=== PATIENT | male | born 1940 | race Caucasian/White ===

== ENCOUNTER → 2017-10-28 | Outpatient (CLI) | payer MEDICARE ==
[~2017-10-28] MED LIST: CALC1TAB87 PO; CO Q100C9 PO; ECASA81 PO; FOLI800T PO; LACTCAP8 PO; OMEGCAP PO; VITA2000 PO; VITA500T83 PO
[2017-10-28 08:26] LABS: PROTHROMBIN TIME - PATIENT 10.6 SEC (9.8-11.6)
--- NOTE | 2017-10-28 16:18 | EKG ---
Date Performed: 10/28/2017 Time Performed: 08:06:12 PTAGE: 77 years EKG: Sinus rhythm RIGHT BUNDLE BRANCH BLOCK ABNORMAL ECG NO PREVIOUS TRACING DOCTOR: Iftikhar Mercado Interpretating Date/Time 10/28/2017 16:17:10
== END ==
LOC: CPRE 07:47
PROVIDERS: ATTEND Orthopaedic Surgery
DX: Z01.810 Encounter for preprocedural cardiovascular examination (principal); Z01.812 Encounter for preprocedural laboratory examination; Z01.818 Encounter for other preprocedural examination; M17.11 Unilateral primary osteoarthritis, right knee; M79.609 Pain in unspecified limb; E11.9 Type 2 diabetes mellitus without complications; R94.31 Abnormal electrocardiogram [ECG] [EKG]
CPT/HCPCS: 36415; 85610; 85730; 93005

== ENCOUNTER → 2017-11-04 | Outpatient (CLI) | payer MEDICARE ==
[~2017-11-04] MED LIST changes: +SIMV20TA PO
[2017-11-04 10:54] LABS: BILIRUBIN, URINE NEG (NEG); BLOOD, URINE NEG (NEG); GLUCOSE,URINE NEG (NEG); KETONE, URINE NEG (NEG); MUCUS URINE FEW /lpf (OCC); NITRITE,URINE NEG (NEG); SQUAMOUS EPITHELIAL CELL URINE <1 /hpf (0-5); URINE COLOR YELLOW (YELLW/STRAW); URINE LEUKOCYTE ESTERASE NEG (NEG)
== END ==
LOC: CPRE 09:45
PROVIDERS: ATTEND Orthopaedic Surgery
DX: Z01.812 Encounter for preprocedural laboratory examination (principal); E11.9 Type 2 diabetes mellitus without complications; M17.11 Unilateral primary osteoarthritis, right knee; M79.609 Pain in unspecified limb
CPT/HCPCS: 81001

== ENCOUNTER 2017-11-07 07:00 | Inpatient (IN) | payer MEDICARE ==
[~2017-11-07] VITALS: Ht 180.3 cm; Wt 113.2 kg
[~2017-11-07 07:00] MED LIST changes: -SIMV20TA PO
[2017-11-08] MEDS ORDERED: FAT EMULSION 20% INJ 0 ML ONE (05:38)
[2017-11-08] MEDS ORDERED: METOPROLOL TARTRATE 25 MG TAB PO PRN (05:45)
[2017-11-08] MEDS ORDERED: SODIUM CHLORID 0.9% 500 ML IV PRN (05:45)
[2017-11-08] MEDS ORDERED: POVIDONE IODINE 5% (ANTISEPSIS KIT) 4 APPLICATIONS EACH NARE PRN (05:45)
[2017-11-08] MEDS ORDERED: LACTATED RINGER'S 1000 ML IV PRN (05:45)
[2017-11-08] MEDS ORDERED: ceFAZolin 2 GM PREMIX 50 ML IV SCH (05:45)
[2017-11-08] MEDS ORDERED: CHLORHEXIDINE GLUCONATE 2 % 1 PACK (2 CLOTHS) TOPICAL PRN (05:45)
[2017-11-08] MEDS ORDERED: CHLORHEXIDINE GLUCONATE 4% SOLN 120 ML BTL TOPICAL SCH (05:45)
[2017-11-08] MEDS ORDERED: SIMV20TA PO (05:50)
[2017-11-08] MEDS ORDERED: GENTAMICIN SULFATE 80 MG/2 ML VIAL ONE (06:04)
[2017-11-08 06:14] VITALS: PULSE 82
[2017-11-08] MEDS ORDERED: BUPIVACAINE HCL PF 0.5% 30 ML VIAL ONE (06:17)
[2017-11-08] MEDS ORDERED: ACETAMINOPHEN 1000 MG/100 ML 100 ML IV ONE (06:39)
[2017-11-08] MEDS ORDERED: BUPIVACAINE PF 0.75% DEX-WATER INJ 2 ML AMP ONE (06:39)
[2017-11-08] MEDS ORDERED: TRANEXAMIC ACID INJ 1,100 MG in SODIUM CHLORIDE 0.9% INJ 100 ML IV SCH (07:00)
[2017-11-08] MEDS ORDERED: EXPAREL PERI-ARTICULAR INJECTION (TOTAL VOL. 100 ML) P-ARTICULR SCH ×2 (07:00)
[2017-11-08] MEDS ORDERED: PROPOFOL 200 MG/20 ML AMP ONE (07:18)
--- NOTE | 2017-11-08 09:20 | PD.OP ---
Operative Report Date of Surgery: Nov 08, 2017 Preoperative Diagnosis: (1) Primary osteoarthritis of right knee Postoperative Diagnosis: (1) Primary osteoarthritis of right knee Procedure: Right total knee arthroplasty using Palmer Triathlon prosthesis (uncemented) Anesthesia: Spinal with supplemental adductor canal block regional and local with Exparel Surgeon: Kelvin Palma MD Air Brakes Inspector(s): EAN Pierce Operation and Findings: Indications and Findings: This 77-year-old man has had 10-15 year history of right knee pain progressively worsening to the point that he now has an ambulation tolerance of 100 yards. He has difficulty with activities of daily living including stair climbing and standing from a seated position. He has been treated with analgesics, anti-inflammatory agents, exercises, ambulatory aids with no improvement and continued worsening. Physical findings showed degenerative varum with medial laxity, crepitation on motion, and antalgic gait and an effusion. X-rays show loss of articular cartilage to [id number] in the medial compartment with medial, lateral and patellofemoral osteophytes as well as evidence of chondrocalcinosis. Operative findings: There is severe osteoarthritis in the right knee with loss of articular cartilage to [id number] in the medial, lateral and patellofemoral compartments. There are large osteophytes. There is significant medial eburnation and patellofemoral eburnation. The prosthesis used was a Palmer Triathlon prosthesis. The femur was a size 7, cruciate retaining, uncemented. The tibial baseplate was a size 8 Tritanium with a 9 mm cruciate retaining X3 polyethylene spacer. The patella was a size 38 mm asymmetric Tritanium backed. The patient was brought to the clean-air operating suite. A spinal anesthetic was administered as well as a regional anesthetic by adductor canal block. The position was supine with a small bolster under the hip on the operative side. A pneumatic tourniquet was applied to the upper thigh. The lower extremity was prepped with alcohol, Hibiclens and ChloraPrep and draped in the usual manner with the knee draped free. An appropriate timeout procedure was carried out. An incision was made from about 3 fingerbreadths above the superior medial pole of patella down the tibial tubercle on the medial side. The incision was deepened through the subcutaneous tissue to the retinacular structures which were exposed medially and laterally. A medial retinacular incision was made from the superior middle pole of patella down the tibial tubercle and up into the quadriceps tendon splitting it longitudinally and the medial one third. The patella was reflected. The infrapatellar fat pad was debulked. The anterior cruciate ligament was excised. Medial and lateral meniscectomies were initiated. Fenestrations were made in the distal femur and proximal tibia for intramedullary referencing guides. The distal femoral cutting guide and jig were assembled for a 5, 8 mm cut. When this was fit into position,the cutting block was stabilized with pins. The jig was removed. The distal femoral cut was then completed with the oscillating saw. The sizing guide was positioned in place along Whitesides line and the epicondylar axis and stabilized with pins. The femoral size was determined as noted above. The 4-in-1 cutting block was positioned in place. Anterior and posterior cuts were made followed by posterior and anterior chamfer cuts taking care to prevent injury to ligamentous structures. Osteophytes were trimmed from the distal femur. A bone plug was placed into the fenestration of the distal femur. The proximal tibia was exposed. The medial and lateral meniscectomies were completed. The proximal tibial cutting guide was positioned in place and stabilized with a pin for rotation. The depth of cut was verified with a stylus off the high side. The cutting block was stabilized with pins. The jig was removed. The depth of cut was verified and adjusted appropriately with the use of the spacer block. The proximal tibial cut was made with the oscillating saw taking care to prevent injury to neurovascular and ligamentous structures. Proximal tibial bone was removed. Local anesthetic was administered with Exparel in the posterior capsule. The tibial baseplate trial was positioned in place. After verifying the appropriate size, the base plate trial was positioned in place along with its spacer. The femoral component was impacted into place. The alignment was checked. The tibial baseplate was pinned in place on the tibia. Attention was directed to the patella. The patella drill guide was positioned in place for the appropriate sized patella. Patellar drilling was then carried out. The trial patella was positioned in place. The knee was taken through a range of motion which was easily 0 extension to 140 of flexion. The patella trial was removed. The femoral drill holes were made. The femoral trials were removed. The tibial spacer was removed. A bone plug was placed into the proximal tibia. The tibial punch was impacted through the proximal tibial punch guide. This was all removed followed by placement of the tibial drill guide. The tibial drill holes were made. The guide was removed. The cut ends of bone were cleaned with pulse lavage. The tibial baseplate was impacted into place and seated appropriately. The spacer was inserted. The the femoral component was impacted into place and seated appropriately. The patella component was seated with the patellar vice and tightened appropriately. The knee was taken through a range of motion which was comparable to the previous range of motion with excellent stability in flexion and extension and appropriate patellofemoral tracking. The remainder of the Exparel was injected throughout the knee as a local anesthetic. Drains were brought out the superior lateral aspect of the suprapatellar pouch. Wound closure commenced using 0 Vicryl interrupted [id number] sutures for the capsular and fascial structures, 2-0 Vicryl interrupted simple sutures with buried knots for the subcutaneous tissues and 4-0 Monocryl, continuous subcuticular closure for the skin. The wound was dressed with Dermabond Prineo followed by a dry sterile dressing. Sterile soft roll with a cooling pad and Robinson bandage from the base of the toes to mid thigh were applied. Patient was transferred from the operating room to the recovery room in satisfactory condition having tolerated procedure well. Counts were correct. Specimens: None. Estimated blood loss: 200 mL Diana Palma MD ([facility]) Nov 08, 2017 09:20
--- NOTE | 2017-11-08 09:29 | HHI.FF ---
Face to Face Verification Diagnosis: (1) Status post total right knee replacement Physical Therapy Gait training Knee: Total knee, Protocol: Right, Full weight bearing Right LE Weight Bearing: WB as tolerated Right LE Range of Motion: Active ROM (Active, active assisted, passive range of motion. Range of motion goal is 0 extension to 135 of flexion. Range of motion achieved in the operating room was 0 extension to 140 of flexion.) Nursing Nursing: Dressing changes Dressing Changes: Daily dressing change, Coverderm/Primapore Additional Instructions Do not remove Dermabond Prineo. I have seen patient Yonatan Nielsen Felipa, III on 11/08/17. My clinical findings support the need for the requested home health care services because: Ltd mobility - disease progression Limited ability to care for self High risk of falls I certify that my clinical findings support that this patient is homebound because: Post-op weakness Unsteady gait/balance Unsafe to leave home unassisted Diana Palma MD ([place]) Nov 08, 2017 09:29
[2017-11-08] MEDS ORDERED: MORPHINE SULFATE 4 MG/ML INJ IV PUSH PRN (09:30)
[2017-11-08] MEDS ORDERED: ACETAMINOPHEN/HYDROcodone 325 MG/7.5 MG TAB PO PRN (09:30)
[2017-11-08] MEDS ORDERED: MAGNESIUM HYDROXIDE SUSP 30 ML CUP PO PRN (09:30)
[2017-11-08] MEDS ORDERED: Post-op Orders (for Pharmacy) XX ONE (09:30)
[2017-11-08] MEDS ORDERED: ONDANSETRON HCL 4 MG/2 ML VIAL IVP PRN (09:30)
[2017-11-08] MEDS ORDERED: HYDR-3580 PO (09:32)
[2017-11-08] MEDS ORDERED: ECASA81 PO (09:32)
[2017-11-08] MEDS ORDERED: DO NOT ADM ANY ANTICOAGULANT DRUGS PRN (09:39)
[2017-11-08] MEDS ORDERED: GLYCOPYRROLATE 0.2 MG/ML VIAL ONE (09:56)
[2017-11-08] MEDS ORDERED: *ONDANSETRON 4 MG VIAL PERIprocedural Use ONLY ONE (09:57)
[2017-11-08] MEDS ORDERED: TRANEXAMIC ACID IV SCH ×2 (10:00→10:15)
[2017-11-08] MEDS ORDERED: SODIUM CHLORIDE 0.9% IV SCH ×2 (10:00→10:15)
[2017-11-08] MEDS: LACTATED RINGER'S 1000 ML INJ 1,000 ML IV SCH ×3 (10:07→23:38)
[2017-11-08] MEDS: KETOROLAC TROMETHAMINE 30 MG/ML (IVP) VIAL IVP SCH ×3 (10:20→20:49)
--- NOTE | 2017-11-08 10:39 | RADRPT ---
EXAM DATE: 11/08/2017 10:32 AM EDT AGE/SEX: 77 years / Male INDICATIONS: Post op right knee surgery. CLINICAL DATA: This is the patient's initial encounter. Patient reports that signs and symptoms have been present for 1 day and indicates a pain score of 0/10. MEDICAL/SURGICAL HISTORY: None. None. COMPARISON: No prior exams available for comparison. FINDINGS: AP and lateral views of the right knee demonstrate metallic hardware in place at the distal femur and proximal tibia including a metallic patellar component. A surgical drain is in place. No unexpected finding is identified. CONCLUSION: Expected changes following recent right total knee arthroplasty, as above. Electronically signed by: Kenny Toscano MD 11/08/2017 10:38 AM EDT
[2017-11-08] MEDS ORDERED: GLYCOPYRROLATE 0.2 MG/ML VIAL IV ONE (10:45)
[2017-11-08] MEDS ORDERED: LACTATED RINGER'S 1000 ML INJ 1,000 ML IV ONE (12:00)
[2017-11-08] MEDS ORDERED: PROPOFOL 200 MG/20 ML AMP IV ONE (12:00)
--- NOTE | 2017-11-08 12:09 | PD.CONS ---
HPI Service [facility] Consult Requested By Reason for Consult medical management. Primary Care Physician Non-Staff Diagnoses: History of Present Illness patient is a 77 y/o male with history of osteoarthritis, diabetes mellitus, dyslipidemia and melanoma, who underwent right total knee arthroplasty. at the time of my evaluation he was resting comfortably with no distress and no reported pain. denies any sob, dizziness, nausea. Review of Systems Constitutional: DENIES: Fever, Weight loss, Chills, Night Sweats Eyes: DENIES: Blurred vision, Diplopia, Vision loss, Double Vision Ears, nose, mouth, throat: DENIES: Tinnitus, Vertigo, Throat pain, Epistaxis Respiratory: DENIES: Apneas, Cough, Snoring, Wheezing, Hemoptysis, Sputum production, Shortness of breath Cardiovascular: DENIES: Chest pain, Palpitations, Syncope, Dyspnea on Exertion , PND, Lower Extremity Edema, Orthopnea, Claudication Gastrointestinal: DENIES: Abdominal pain, Black stools, Bloody stools, Constipation, Diarrhea, Nausea, Vomiting, Difficulty Swallowing, Anorexia Genitourinary: DENIES: Urinary frequency, Urgency, Hematuria, Dysuria Musculoskeletal: DENIES: Joint pain, Muscle aches, Stiffness, Joint Swelling Integumentary: DENIES: Rash Neurologic: DENIES: Abnormal gait, Headache, Localized weakness, Paresthesias, Seizures, Speech Problems, Tremor, Poor Balance Psychiatric: DENIES: Anxiety, Confusion, Mood changes, Depression, Hallucinations, Agitation, Suicidal Ideation, Homicidal Ideation, Delusions Past Family Social History Allergies: Coded Allergies: cephalexin (Verified Allergy, Unknown, NAUSEA VOMITING, 11/08/17) Past Medical History diabetes mellitus/ osteoarthritis/ dyslipidemia/ melanoma. Past Surgical History tonsillectomy/ hernia repair/ melanoma removal. Reported Medications aspirin, simvastatin, folic acid, cholecalciferol. Active Ordered Medications Inpatient Medications Acetaminophen/ Hydrocodone Bitart (Dameron 7.5-325 Mg) 2 tab Q4H PRN PO PAIN SCALE 5 TO 10; Start 11/08/17 at 09:30 Ascorbic Acid (Vitamin C) 1,000 mg DAILY PO ; Start 11/09/17 at 09:00 Aspirin (Ecotrin Ec) 81 mg BID PO ; Start 11/09/17 at 09:00 Bupivacaine Liposome 20 ml/ Sodium Chloride 100 ml @ 200 mls/hr ONCE P- ARTICULR Last administered on 11/08/17at 07:28; Start 11/08/17 at 07:00; Stop at 13:00 Cefazolin Sodium 1000 mg/Sodium Chloride 100 ml @ 200 mls/hr Q6H IV ; Start at 13:00; Stop 11/09/17 at 01:29 Cefazolin Sodium/ Dextrose 50 ml @ 100 mls/hr BUSINESS TECHNOLOGY TEACHER IV Last administered on 11/08/17at 07:15; Start 11/08/17 at 05:45; Stop 11/11/17 at 05:44 Chlorhexidine Gluconate (Chlorhexidine 2% Cloth) 3 pack BUSINESS TECHNOLOGY TEACHER PRN TOPICAL SEE LABEL COMMENTS Last administered on 11/08/17at 05:30; Start 11/08/17 at 05:45 ; Stop 11/11/17 at 05:44 Chlorhexidine Gluconate (Hibiclens 4% Top Soln) 1 applic ONCE TOPICAL ; Start at 05:45; Stop 11/11/17 at 05:44 Cholecalciferol (Vitamin D3) 2,000 units DAILY PO ; Start 11/09/17 at 09:00 Docusate Sodium (Colace) 100 mg BID PO ; Start 11/09/17 at 21:00 Folic Acid (Folate) 1 mg DAILY PO ; Start 11/09/17 at 09:00 Glycopyrrolate (Robinul Inj) 0.2 mg NOW ONCE IV ; Start 11/08/17 at 10:45; Stop 11/08/17 at 10:46; Status DC Ketorolac Tromethamine (Toradol Inj) 15 mg Q6H IVP Last administered on at 10:20; Start 11/08/17 at 09:30; Stop 11/10/17 at 03:31 Lactated Ringer's 1,000 ml @ 80 mls/hr [id number] IV Last administered on at 10:07; Start 11/08/17 at 09:23 Lactobacillus Acidophilus (Lactinex) 1 tab DAILY PO ; Start 11/09/17 at 09:00 Magnesium Hydroxide (Milk Of Magnesia Liq) 30 ml DAILY PRN PO CONSTIPATION; Start 11/08/17 at 09:30 Metoprolol Tartrate (Lopressor) 25 mg BUSINESS TECHNOLOGY TEACHER PRN PO SEE LABEL COMMENTS; Start 11/08/17 at 05:45; Stop 11/11/17 at 05:44 Miscellaneous Information ([facility] [place]) ALL NURSING DEPARTME... UNSCH PRN .XX SEE LABEL COMMENTS; Start 11/08/17 at 09:39; Stop 11/09/17 at 09: 38 Miscellaneous Information ([facility] [place] (for Pharmacy)) STAT ONCE XX ; Start 11/08/17 at 09:30; Stop 11/08/17 at 09:37; Status DC Morphine Sulfate (Morphine Inj) 4 mg Q3H PRN IV PUSH BREAKTHROUGH PAIN; Start 11/08/17 at 09:30 Non-Formulary Medication 1 cap DAILY PO ; Start 11/09/17 at 09:00; Stop at 09:00; Status DC Ondansetron HCl (Zofran Inj) 4 mg Q6H PRN IVP NAUSEA OR VOMITING; Start at 09:30 Povidone Iodine (Betadine 5% Antisepsis Kit) 1 applic BUSINESS TECHNOLOGY TEACHER PRN EACH NARE SEE LABEL COMMENTS Last administered on 11/08/17at 05:45; Start 11/08/17 at 05:45 ; Stop 11/11/17 at 05:44 Pravastatin Sodium (Pravachol) 40 mg HS PO ; Start 11/08/17 at 21:00 Sodium Chloride 500 ml @ 30 mls/hr [id number] PRN IV SEE LABEL COMMENTS; Start at 05:45; Stop 11/11/17 at 05:44 Tranexamic Acid 1100 mg/Sodium Chloride 111 ml @ 200 mls/hr ONCE IV Last administered on 11/08/17at 07:15; Start 11/08/17 at 07:00; Stop 11/08/17 at 13:00 Tranexamic Acid 1132 mg/Sodium Chloride 111.32 ml @ 200 mls/ hr UNSCH IV Last administered on 11/08/17at 10:18; Start 11/08/17 at 10:15; Stop 11/08/17 at 16:15 Zolpidem Tartrate (Ambien) 5 mg HS PRN PO SLEEP; Start 11/08/17 at 21:00 Family History not related to this consult. Social History no smoking- drinks rarely. Physical Exam Vital Signs Vital Signs Date Time Temp Pulse Resp B/P (MAP) Pulse Ox O2 Delivery O2 Flow Rate FiO2 11/08/17 12:00 79 18 144/73 (96) 97 Nasal Cannula 2 11/08/17 11:00 65 8 115/69 (84) 98 Nasal Cannula 2 11/08/17 10:45 70 19 135/77 (96) 100 Nasal Cannula 2 11/08/17 10:30 66 24 129/61 (83) 99 Nasal Cannula 2 11/08/17 10:15 69 20 128/74 (92) 99 Nasal Cannula 2 11/08/17 10:00 68 15 80/52 (61) 98 Nasal Cannula 3 11/08/17 09:59 52 15 73/49 (57) 98 11/08/17 09:55 35 11/08/17 09:45 61 15 104/65 (78) 99 Nasal Cannula 3 11/08/17 09:37 97.5 62 15 102/67 (79) 99 Nasal Cannula 3 11/08/17 06:15 98 Nasal Cannula 2 11/08/17 06:14 82 11/08/17 05:58 99.0 81 18 139/75 (96) 98 Physical Exam GENERAL: This is a well-nourished, well-developed patient, in no apparent distress. SKIN: No rashes, ecchymoses or lesions. Cool and dry. HEAD: Atraumatic. Normocephalic. No temporal or scalp tenderness. EYES: Pupils equal round and reactive. Extraocular motions intact. No scleral icterus. No injection or drainage. ENT: Nose without bleeding, purulent drainage or septal hematoma. Throat without erythema, tonsillar hypertrophy or exudate. Uvula midline. Airway patent. NECK: Trachea midline. No JVD or lymphadenopathy. Supple, nontender, no meningeal signs. CARDIOVASCULAR: Regular rate and rhythm without murmurs, gallops, or rubs. RESPIRATORY: Clear to auscultation. Breath sounds equal bilaterally. No wheezes , rales, or rhonchi. GASTROINTESTINAL: Abdomen soft, non-tender, nondistended. No hepato-splenomegaly , or palpable masses. No guarding. MUSCULOSKELETAL: right knee covered with clean dressing. NEUROLOGICAL: Awake and alert. Cranial nerves II through XII intact. Motor and sensory grossly within normal limits. Five out of 5 muscle strength in all muscle groups. Normal speech. Imaging Last Impressions Knee X-Ray 11/08/17 9331 Signed Impressions: CONCLUSION: Expected changes following recent right total knee arthroplasty, as above. Assessment and Plan Assessment and Plan A/P - osteoarthritis of the right knee- s/p right total knee arthroplasty. continue with pain control and PT- management per ortho. -diabetes mellitus; diet controlled; start on accu-check with SSI -dyslipidemia; resume statin. -DVT prophylaxis with aspirin - per ortho. thank you for the consult. Discussed Condition With the patient. Linda Denny MD Nov 08, 2017 12:09
[2017-11-08] MEDS ORDERED: GLUCAGON 1 MG/ML VIAL OTHER PRN (12:15)
[2017-11-08] MEDS ORDERED: DEXTROSE 50% IN WATER 50 ML VIAL(D50) IV PUSH PRN (12:15)
[2017-11-08] MEDS: ACETAMINOPHEN/HYDROcodone 325 MG/7.5 MG TAB PO PRN (12:21)
[2017-11-08 16:00] VITALS: BP 111/55; PULSE 83; RESP 18; TEMP 97.8; O2SAT 95
[2017-11-08] MEDS: INSULIN ASPART SUPPLEMENTAL SCALE SQ SCH ×2 (17:00→20:49)
[2017-11-08 20:37] VITALS: BP 117/58; PULSE 78; RESP 18; TEMP 98; O2SAT 96
[2017-11-08] MEDS ORDERED: ZOLPIDEM TARTRATE 5 MG TAB PO PRN (21:00)
[2017-11-08] MEDS ORDERED: PRAVASTATIN SOD 40 MG TAB PO SCH (21:00)
[2017-11-09 01:25] VITALS: BP 98/52; PULSE 83; RESP 20; TEMP 98.7
[2017-11-09] MEDS: KETOROLAC TROMETHAMINE 30 MG/ML (IVP) VIAL IVP SCH ×2 (03:39→08:02)
[2017-11-09 05:22] LABS: HEMATOCRIT 38.8 % (39.0-51.0)
[2017-11-09 05:49] VITALS: BP 110/69; PULSE 83; RESP 20; TEMP 98.6
--- NOTE | 2017-11-09 07:20 | PD.ORT.PN ---
Subjective Post Op Day #: 1 Subjective Remarks He is doing well. He has minimal complaints related to his knee. He has no tenderness of significance. Range of Motion -5 extension to 84 of flexion. Distance Walked 85 feet with physical therapy. Objective Vitals Vital Signs Date Time Temp Pulse Resp B/P (MAP) Pulse Ox O2 Delivery O2 Flow Rate FiO2 11/09/17 05:49 98.6 83 20 110/69 (83) 11/09/17 01:25 98.7 83 20 98/52 (67) 11/08/17 20:37 98.0 78 18 117/58 (77) 96 11/08/17 16:00 97.8 83 18 111/55 (73) 95 11/08/17 13:30 97.8 76 17 111/60 (77) 98 Nasal Cannula 2 11/08/17 13:00 76 24 111/68 (82) 98 Nasal Cannula 2 11/08/17 12:00 79 18 144/73 (96) 97 Nasal Cannula 2 11/08/17 11:00 65 18 115/69 (84) 98 Nasal Cannula 2 11/08/17 10:45 70 19 135/77 (96) 100 Nasal Cannula 2 11/08/17 10:30 66 24 129/61 (83) 99 Nasal Cannula 2 11/08/17 10:15 69 20 128/74 (92) 99 Nasal Cannula 2 11/08/17 10:00 68 15 80/52 (61) 98 Nasal Cannula 3 11/08/17 09:59 52 15 73/49 (57) 98 11/08/17 09:55 35 11/08/17 09:45 61 15 104/65 (78) 99 Nasal Cannula 3 11/08/17 09:37 97.5 62 15 102/67 (79) 99 Nasal Cannula 3 I/O 11/08/17 11/08/17 11/08/17 11/09/17 11/09/17 11/09/17 07:00 15:00 23:00 07:00 15:00 23:00 Intake Total 2124 ml 100 ml Output Total 350 ml 430 ml 50 ml Balance 1774 ml -330 ml -50 ml Intake Oral 480 ml IV Total 344 ml 100 ml Other 1300 ml Output Urine Total 275 ml Drainage Total 150 ml 155 ml 50 ml Estimated Blood Loss 200 ml # Voids 0 1 Result Diagram: 11/09/17 0456 Imaging Last 24 hours Impressions Knee X-Ray 11/08/17 0913 Signed Impressions: CONCLUSION: Expected changes following recent right total knee arthroplasty, as above. Objective Remarks He is resting comfortably, supine in bed, in the CPM. The neurovascular status is intact. The dressing is dry and intact. Assessment & Plan Ortho Post Op Day #: 1 Problem List: (1) Primary osteoarthritis of right knee ICD Codes: M17.11 - Unilateral primary osteoarthritis, right knee Status: Resolved (2) Status post total right knee replacement ICD Codes: Z96.651 - Presence of right artificial knee joint Plan: Continue postop care and PT. Assessment and Plan Condition: Good. Orthopedically stable. DVT prophylaxis: TEDs, aspirin, sequentials. Discharge plans: Home with home health care. An appointment was scheduled through the office. Prescriptions: [place] 7.5/325 Diana Palma MD ([place]) Nov 09, 2017 07:20
[2017-11-09] MEDS: ACETAMINOPHEN/HYDROcodone 325 MG/7.5 MG TAB PO PRN ×2 (07:59→11:56)
[2017-11-09 08:00] VITALS: BP 112/57; PULSE 82; RESP 16; TEMP 98.1; O2SAT 93
[2017-11-09] MEDS: INSULIN ASPART SUPPLEMENTAL SCALE SQ SCH ×2 (08:00→12:37)
--- NOTE | 2017-11-09 08:13 | HHI.DS ---
Discharge Summary Admission Date Nov 08, 2017 at 05:20 Discharge Date: Nov 09, 2017 Admitting Diagnosis Primary osteoarthritis, right knee Diagnosis: (1) Primary osteoarthritis of right knee Diagnosis: Principal ICD Codes: M17.11 - Unilateral primary osteoarthritis, right knee Status: Resolved (2) Status post total right knee replacement Diagnosis: Principal ICD Codes: Z96.651 - Presence of right artificial knee joint Procedures Right total knee arthroplasty using Isabel Triathlon prosthesis (uncemented) on 11/08/2017 Brief History This is a 77 year old male patient has had long-standing right knee pain nonresponsive to conservative measures including anti-inflammatory agents, analgesics, ambulatory aids and exercise. Physical findings showed palpable osteophytes with medial laxity, gender varum, crepitation on motion, an antalgic gait and tenderness on motion. X-rays showed severe osteoarthritis in the right knee with large osteophytes, loss of articular cartilage to bone-on- bone in the medial compartment and eburnation medially. CBC/BMP: 11/09/17 0456 Significant Findings Laboratory Tests Test 11/09/17 04:56 Hematocrit 38.8 % (39.0-51.0) Imaging Last 72 hours Impressions Knee X-Ray 11/08/17 0955 Signed Impressions: CONCLUSION: Expected changes following recent right total knee arthroplasty, as above. PE at Discharge He is resting comfortably, supine in bed, in the CPM. The neurovascular status is intact. The dressing is dry and intact. Hospital Course The patient was admitted as noted above. The above noted operative procedure was carried out that day. Preoperatively prophylactic antibiotics were administered Ancef according to protocol. These were continued postoperatively. The patient also received tranexamic acid to help with hemostasis according to protocol. In the postanesthesia care unit a continuous passive motion device was initiated. Also initiated were mechanical methods of DVT prophylaxis in the form of RACHELE stockings and sequentials. Physical therapy was initiated on the day of surgery. On postoperative day #1 physical therapy continued. The use of the continuous passive motion device continued. DVT prophylaxis with aspirin 81 mg was initiated at this time. The patient continued physical therapy throughout the hospitalization. The distance walked and range of motion improved throughout the hospitalization. The patient was discharged on postoperative day 1 with the disposition being to home with home health care. An appointment for follow-up was made prior to admission. Pt Condition on Discharge: Good Discharge Disposition: Disch w/ Home Health Serv Discharge Instructions Diet Instructions: As Tolerated, No Restrictions Activities You Can Perform: Full Weight Bearing, Shower Only-No Bath Activities to Avoid: Lifting/Bending, Strenuous Activity, Bathing, Driving Follow up Referrals: Orthopedics with Diana Palma MD ([place]) New Medications: Aspirin (Aspirin ) 81 Mg Tabdr 81 MG PO BID for Prevent Blood Clot for 30 Days, #60 TAB Hydrocodone/Acetaminophen (Hydrocodone-Acetamin 7.5-325) 7.5 Mg-325 Mg Tablet 1 TAB PO Q4H PRN for PAIN SCALE 5 TO 10, #42 TAB Continued Medications: Ascorbic Acid ER (Vitamin C ER) 500 Mg Fredrick 1000 MG PO DAILY for Nutritional Supplement, TAB 0 Refills Calcium Carbonate-Cholecalciferol (Calcium 600 with Vitamin D) 600-400 mg-Unit Tab 1 TAB PO DAILY for Calcium Supplement, TAB 0 Refills Cholecalciferol (Vitamin D3) 2,000 Unit Cap 2000 UNITS PO DAILY for Nutritional Supplement, #1 BOTTLE 0 Refills Coenzyme Q10 (Ubidecarenone) (Co Q 10) 100 Mg-5 Unit Cap 1 CAP PO DAILY Fish Oil-Cholecalciferol ([place]-3 Fish Oil/Vitamin) 1,000-1,000 Mg Cap 1 CAP PO DAILY for Nutritional Supplement, CAP 0 Refills Folic Acid (Folic Acid) 0.8 Mg Tab 800 MCG PO DAILY for Nutritional Supplement, TAB 0 Refills Lactobacillus Acidophilus (Probiotic) 10 Billion Cell Cap 1 CAP PO DAILY for Nutritional Supplement, #90 CAP 0 Refills Simvastatin (Simvastatin) 20 Mg Tab 20 MG PO HS for Cholesterol Management, #30 TAB 0 Refills Discontinued Medications: Aspirin (Aspirin ) 81 Mg Tabdr 81 MG PO DAILY, TAB 0 Refills Diana Palma MD ([place]) Nov 09, 2017 08:13
[2017-11-09] MEDS ORDERED: FOLIC ACID 1 MG TAB PO SCH (09:00)
[2017-11-09] MEDS ORDERED: NON-FORMULARY DRUG (Coenzyme Q10 (Ubidecarenone) (Co Q 10) 1 CAP) PO SCH (09:00)
[2017-11-09] MEDS ORDERED: CHOLECALCIFEROL (VIT D3) 1000 UNIT TAB PO SCH (09:00)
[2017-11-09] MEDS ORDERED: ASCORBIC ACID 500 MG TAB PO SCH (09:00)
[2017-11-09] MEDS ORDERED: LACTOBACILLUS ACIDOPHILUS TAB PO SCH (09:00)
[2017-11-09] MEDS ORDERED: NON-FORMULARY DRUG (Fish Oil-Cholecalciferol (Omega-3 Fish Oil/Vitamin) 1 CAP) PO SCH (09:00)
[2017-11-09] MEDS ORDERED: ASPIRIN EC 81 MG TABEC PO SCH (09:00)
--- NOTE | 2017-11-09 09:06 | HHI.PR ---
Subjective Remarks Follow-up visit status post right total knee arthroplasty, DM, HLD, melanoma. Patient seen and examined today. Reports he is doing well. States that it is just difficult for him to move because of the CPM machine. Otherwise, Denies pain and discomfort. Denies SOB/ dyspnea. Denies chest pain, palpitations, headaches, dizziness. Denies fevers, chills, n/v/d. Denies dysuria. Objective Vitals Vital Signs Date Time Temp Pulse Resp B/P (MAP) Pulse Ox O2 Delivery O2 Flow Rate FiO2 11/09/17 05:49 98.6 83 20 110/69 (83) 11/09/17 01:25 98.7 83 20 98/52 (67) 11/08/17 20:37 98.0 78 18 117/58 (77) 96 11/08/17 16:00 97.8 83 18 111/55 (73) 95 11/08/17 13:30 97.8 76 17 111/60 (77) 98 Nasal Cannula 2 11/08/17 13:00 76 24 111/68 (82) 98 Nasal Cannula 2 11/08/17 12:00 79 18 144/73 (96) 97 Nasal Cannula 2 11/08/17 11:00 65 18 115/69 (84) 98 Nasal Cannula 2 11/08/17 10:45 70 19 135/77 (96) 100 Nasal Cannula 2 11/08/17 10:30 66 24 129/61 (83) 99 Nasal Cannula 2 11/08/17 10:15 69 20 128/74 (92) 99 Nasal Cannula 2 11/08/17 10:00 68 15 80/52 (61) 98 Nasal Cannula 3 11/08/17 09:59 52 15 73/49 (57) 98 11/08/17 09:55 35 11/08/17 09:45 61 15 104/65 (78) 99 Nasal Cannula 3 11/08/17 09:37 97.5 62 15 102/67 (79) 99 Nasal Cannula 3 I/O 11/08/17 11/08/17 11/08/17 11/09/17 11/09/17 11/09/17 07:00 15:00 23:00 07:00 15:00 23:00 Intake Total 2124 ml 100 ml 1206 ml Output Total 350 ml 430 ml 50 ml 60 ml Balance 1774 ml -330 ml 1156 ml -60 ml Intake Oral 480 ml IV Total 344 ml 100 ml 1206 ml Other 1300 ml Output Urine Total 275 ml Drainage Total 150 ml 155 ml 50 ml 60 ml Estimated Blood Loss 200 ml # Voids 0 1 Result Diagram: 11/09/17 0456 Imaging Last Impressions Knee X-Ray 11/08/17 0966 Signed Impressions: CONCLUSION: Expected changes following recent right total knee arthroplasty, as above. Objective Remarks GENERAL: This is a well-nourished, well-developed patient, in no apparent distress. SKIN: Warm and dry. HEENT: Normocephalic. Pupils equal round and reactive. Nose without bleeding. Airway patent. NECK: Trachea midline. No JVD. Supple. CARDIOVASCULAR: Regular rate and rhythm without murmurs, gallops, or rubs. RESPIRATORY: Clear to auscultation. Breath sounds equal bilaterally. No wheezes , rales, or rhonchi. GASTROINTESTINAL: Abdomen soft, non-tender, nondistended. Bowel Sounds normoactive x4. MUSCULOSKELETAL: Extremities without clubbing, cyanosis, or edema. Right lower extremity with dressing clean dry and intact. No edema noted. NEUROLOGICAL: Awake and alert. Oriented to time, place, person. No focal neuro deficit. Moves all extremities. Normal speech. A/P Assessment and Plan Patient is a 77 y/o male with history of osteoarthritis, diabetes mellitus, dyslipidemia and melanoma, who underwent right total knee arthroplasty Status post right total knee arthroplasty by Dr. Palma -Orthopedic doctor following -Pain management with bowel regimen -PT eval and treat HLD -Continue with simvastatin 20 mg daily Diabetes mellitus type 2 -Monitor Accu-Cheks, insulin sliding scale Hypovitaminosis -Continue home dose calcium, folic acid, ascorbic acid, vitamin D3, co-Q10 DVT prop aspirin 81 mg twice daily per Ortho [facility] from [facility] standpoint. Medically Clear for DC. Discharge Planning Plan to DC home with home health care when cleared by orthopedic surgeon Lizz Betancur Nov 09, 2017 09:06
[2017-11-09 12:00] VITALS: BP 129/67; PULSE 81; RESP 16; TEMP 98; O2SAT 94
[2017-11-09] MEDS ORDERED: DOCUSATE SODIUM 100 MG CAP PO SCH (21:00)
== END 2017-11-09 14:36 | disposition home or self-care (01) | DRG 470 ==
LOC: HSDI 11-08 05:20 → N06B 11-08 13:55
PROVIDERS: ADMIT Orthopaedic Surgery; ATTEND Orthopaedic Surgery
PROC: 0SRC0JA Replacement of Right Knee Joint with Synthetic Substitute, Uncemented, Open Approach (ICD-10-PCS; principal; 2017-11-08 06:46)
DX: M17.11 Unilateral primary osteoarthritis, right knee (principal); E11.9 Type 2 diabetes mellitus without complications; E56.9 Vitamin deficiency, unspecified; E78.5 Hyperlipidemia, unspecified; Z85.820 Personal history of malignant melanoma of skin
CPT/HCPCS: 73560; 82948; 85014; 85018; 86850; 86900; 86901; 94150; C1776; C9290; J0131; J0690; J1580; J1815; J1885; J2405; J7120